=== PATIENT | male | born 1985 | race Caucasian/White ===

== ENCOUNTER 2021-12-25 13:06 | Inpatient (IN) | payer BC ==
[~2021-12-25] VITALS: Ht 185.4 cm; Wt 60.8 kg
[2021-12-25 13:06] VITALS: BP 141/96
[2021-12-25] MEDS ORDERED: LORazepam 2 MG/ML VIAL IVP ONE (13:30)
[2021-12-25] MEDS ORDERED: ONDANSETRON 4 MG/2 ML VIAL IVP ONE (13:30)
[2021-12-25] MEDS ORDERED: FOLIC ACID 1 MG TAB PO ONE (13:30)
[2021-12-25] MEDS ORDERED: THIAMINE 200 MG/2 ML VIAL IM ONE (13:30)
[2021-12-25] MEDS ORDERED: NACL 0.9% 1,000 ML IV ONE (13:30)
[2021-12-25] MEDS ORDERED: MULTIVITAMIN 1 TAB ONE (14:05)
--- NOTE | 2021-12-25 14:08 | NUR ---
PATIENT IN ROOM 8. PT IN GOWN
--- NOTE | 2021-12-25 14:08 | NUR ---
LAB AT BEDSIDE
--- NOTE | 2021-12-25 14:29 | NUR ---
36YR OLD MALE BIB EMS C/O ALOC. PT WAS FOUND DOWN NO TRAUMA. PT A&OX4. PT HAS HX OF ETOH ABUSE . ON MEDS TO HELP WITHDRAWL /CRAVINGS. PT ON MONITOR. RESP EVEN AND UNLABORED. SZ PADS ON SIDE RAILS. HX OF SZ S/P ETOH WITHDRAWL. SIDE RAILS UPX2 BED AT LOWEST POSITION. HOB ELEVATED NKDA SZ
[2021-12-25 14:31] LABS: BASOPHILS % (AUTO) 0.6 % (0.0-2.0); EOSINOPHILS % (AUTO) 0.1 % (0.0-4.0); HEMATOCRIT 36.3 % (36-52); HEMOGLOBIN 12.3 g/dL (12.0-18.0); LYMPHOCYTES # (AUTO) 0.3 K/uL (2.0-11.5); LYMPHOCYTES % (AUTO) 8.2 % (20.5-51.1); MEAN CORPUSCULAR HEMOGLOBIN 36 pg (27-31); MEAN CORPUSCULAR HGB CONC 34 g/dL (33-37); MEAN CORPUSCULAR VOLUME 107.2 fL (80-94); MONOCYTES # (AUTO) 0.3 K/uL (0.8-1.0); MONOCYTES % (AUTO) 8.8 % (1.7-9.3); NEUTROPHILS # (AUTO) 2.9 K/uL (1.8-7.7); NEUTROPHILS % (AUTO) 82.3 % (42.2-75.2); PLATELET COUNT (AUTO) 91 K/uL (140-450); RED BLOOD CELL COUNT(AUTO) 3.39 MIL/uL (4.20-6.10); RED CELL DISTRIBUTION WIDTH 16.5 % (11.6-13.7); WHITE BLOOD COUNT (AUTO) 3.5 K/uL (4.8-10.8)
--- NOTE | 2021-12-25 14:46 | NUR ---
20G IV CATH R AC PER EMS
--- NOTE | 2021-12-25 14:50 | NUR ---
PT STATES HAVING A HEADACHE. REQUESTING SOMETHING FOR PAIN. PT IS MORE RELEAXED. PT IS SITTING UP WITH HOB ELEVETED. RESP EVEN AND UNLABORED . NO DISTRESS NOTED. PT IS ON THE MONTIOR
[2021-12-25 14:56] LABS: ANION GAP 13.3 (8-16); CARBON DIOXIDE 27.4 mmol/L (21-32); CREATININE 0.7 mg/dL (0.6-1.3); MAGNESIUM 1.2 mg/dL (1.8-2.4); PHOSPHORUS 2.9 mg/dL (2.5-4.9); POTASSIUM 4.7 mmol/L (3.5-5.1); TOTAL BILIRUBIN 1.5 mg/dL (0.0-1.0)
--- NOTE | 2021-12-25 16:35 | NUR ---
SWAB FOR FLOR SENT TO LAB
[2021-12-25] MEDS ORDERED: [UNRECOGNIZED DRUG - CODE] PO (19:35)
--- NOTE | 2021-12-25 20:40 | NUR ---
SPOKE WITH BROTHER IN LAW. EXPLAINED WHY HE WAS BEING ADMITTED
[2021-12-25] MEDS ORDERED: ZOLPIDEM 5 MG TAB PO PRN (23:20)
[2021-12-25] MEDS ORDERED: DOCUSATE SODIUM 100 MG GELCAP PO PRN (23:20)
[2021-12-25] MEDS ORDERED: guaiFENesin DM 200/20 MG-10 ML 10 ML UDC PO PRN (23:20)
[2021-12-25] MEDS ORDERED: POTASSIUM CHLORIDE 10 MEQ TABER PO PRN (23:20)
[2021-12-25] MEDS ORDERED: ONDANSETRON 4 MG/2 ML VIAL IM/IVP PRN (23:20)
[2021-12-25] MEDS ORDERED: HYDROcodone/APAP 7.5/325 MG 1 TAB PO PRN (23:20)
[2021-12-25] MEDS ORDERED: ACETAMINOPHEN 325 MG TAB PO PRN (23:20)
[2021-12-25] MEDS ORDERED: MULTIVITAMIN-12 10 ML, FOLIC ACID 1 MG in DEXT 5% / LACT RING 1,000 ML IV ONE (23:25)
[2021-12-25] MEDS ORDERED: LORazepam 2 MG/ML VIAL IM/IVP PRN (23:25)
[2021-12-25] MEDS ORDERED: MAG SULF 2000 MG/WATER PREMIX 50 ML IV ONE (23:25)
--- NOTE | 2021-12-26 00:05 | NUR ---
PT AMBULATE TO BATHROOM
[2021-12-26 00:18] LABS: CHOL/HDL RATIO 1.4 (1-4.5); FREE T4 (FREE THYROXINE) 0.93 ng/dL (0.76-1.46); MAGNESIUM 1.2 mg/dL (1.8-2.4); THYROID STIMULATING HORMONE 1.23 uIU/mL (0.34-3.74)
[2021-12-26] MEDS: NACL 0.9% 1,000 ML IV SCH ×2 (00:34→16:00)
[2021-12-26 02:01] LABS: APPEARANCE,URINE CLEAR (CLEAR); BILIRUBIN,URINE NEGATIVE (NEGATIVE); BLOOD, URINE NEGATIVE (NEGATIVE); COLOR,URINE DARK YELLOW (YELLOW); LEUKOCYTE ESTERASE ,URINE NEGATIVE (NEGATIVE); NITRITE, URINE NEGATIVE (NEGATIVE); UGLUCOSE NEGATIVE (NEGATIVE)
[2021-12-26 03:10] LABS: BARBITURATE, URINE NEGATIVE ng/ml (NEG <=200); BENZODIAZEPINE, URINE POSITIVE ng/mL (NEG <=200); CANNABINOID, URINE NEGATIVE ng/mL (NEG <=50); COCAINE, URINE NEGATIVE ng/mL (NEG <=300); OPIATE, URINE NEGATIVE ng/mL (NEG <=2000); PHENCYCLIDINE SCREEN,URINE NEGATIVE ng/mL (NEG <=25)
[2021-12-26] MEDS: LORazepam 1 MG TAB PO SCH ×4 (05:08→16:19)
--- NOTE | 2021-12-26 05:16 | NUR ---
PT SLEEPING IN BED. X2 SIDE RIALS UP. SEIZURE PRECAUTION ON
[2021-12-26 06:39] LABS: ANION GAP 11.7 (8-16); CARBON DIOXIDE 27.3 mmol/L (21-32); CREATININE 0.7 mg/dL (0.6-1.3)
--- NOTE | 2021-12-26 07:22 | NUR ---
Carina castillo in [facility] - 12/26/21 at 0723 by PEDRITO Pt report given to . Transfer of care at this time.
--- NOTE | 2021-12-26 07:23 | NUR ---
Pt report given to BEENA. Transfer of care at this time.
--- NOTE | 2021-12-26 07:24 | NUR ---
REPORT RECEIVED FROM NOVA HARRIS. ASSUMED CARE AT THIS TIME
[2021-12-26 08:21] LABS: BASOPHILS % (AUTO) 0.5 % (0.0-2.0); HEMATOCRIT 37.3 % (36-52); HEMOGLOBIN 12.5 g/dL (12.0-18.0); LYMPHOCYTES # (AUTO) 0.8 K/uL (2.0-11.5); LYMPHOCYTES % (AUTO) 18.9 % (20.5-51.1); MEAN CORPUSCULAR HEMOGLOBIN 36 pg (27-31); MEAN CORPUSCULAR HGB CONC 34 g/dL (33-37); MEAN CORPUSCULAR VOLUME 107.4 fL (80-94); MONOCYTES # (AUTO) 0.5 K/uL (0.8-1.0); MONOCYTES % (AUTO) 11.8 % (1.7-9.3); NEUTROPHILS # (AUTO) 2.9 K/uL (1.8-7.7); NEUTROPHILS % (AUTO) 67.8 % (42.2-75.2); PLATELET COUNT (AUTO) 79 K/uL (140-450); RED BLOOD CELL COUNT(AUTO) 3.47 MIL/uL (4.20-6.10); RED CELL DISTRIBUTION WIDTH 15.9 % (11.6-13.7); WHITE BLOOD COUNT (AUTO) 4.4 K/uL (4.8-10.8)
--- NOTE | 2021-12-26 08:21 | NUR ---
PT AMBULATED TO RESTROOM
--- NOTE | 2021-12-26 08:24 | NUR ---
PT AMBULATORY BACK TO ROOM
--- NOTE | 2021-12-26 08:33 | NUR ---
PHARMACY CALLED FOR BANANA BAG
[2021-12-26] MEDS ORDERED: THIAMINE 100 MG TAB PO SCH (09:00)
[2021-12-26] MEDS ORDERED: PANTOPRAZOLE 40 MG TABEC PO SCH (09:00)
[2021-12-26] MEDS ORDERED: FOLIC ACID 1 MG TAB PO SCH (09:00)
[2021-12-26] MEDS ORDERED: MULTIVITAMIN 1 TAB PO SCH ×2 (09:00)
--- NOTE | 2021-12-26 09:15 | NUR ---
RECEIVED VERBAL ORDER FOR 1MG ATIVAN PO Q4H INSTEAD OF Q8H. WILL UPDATE ORDER AND INFORM PRIMARY NURSE.
--- NOTE | 2021-12-26 12:15 | NUR ---
PT TO BE NPO UNTIL ULTRASOUND. PT MADE AWARE
--- NOTE | 2021-12-26 13:27 | NUR ---
PATIENT HAS BEEN SCREENED AND CATEGORIZED LOW NUTRITION RISK. PATIENT WILL BE SEEN WITHIN 7 DAYS OF ADMISSION. 01/01/[address]
--- NOTE | 2021-12-26 14:15 | NUR ---
PT AMBULATED TO RR
--- NOTE | 2021-12-26 14:20 | NUR ---
PT AMBULATED BACK TO ROOM
--- NOTE | 2021-12-26 15:15 | NUR ---
ULTRASOUND AT BEDSIDE
--- NOTE | 2021-12-26 15:43 | NUR ---
PT EATING FOOD IN BED , PROVIDED BY PARTNER
--- NOTE | 2021-12-26 17:30 | NUR ---
Carina castillo in [facility] - 12/26/21 at 1732 by PHSEP PT AMBULATED TO RESTRROM
--- NOTE | 2021-12-26 17:32 | NUR ---
PT AMBULATED TO RESTROOM
--- NOTE | 2021-12-26 17:33 | NUR ---
PT AMBULATED BACK TO ROOM
--- NOTE | 2021-12-26 18:48 | NUR ---
PT PROVIDED WITH DINNER, LEFT AT BEDSIDE
[2021-12-26 19:05] VITALS: BP 137/93
--- NOTE | 2021-12-26 19:29 | NUR ---
REPORT GIVEN TO MT HARRIS. ALL QUESTIONS ANSWERED. TRANSFER OF CARE AT THIS TIME
--- NOTE | 2021-12-26 19:45 | NUR ---
SUGEY STATED HE HAS TO GIVE HIS BAG TO HIS .
--- NOTE | 2021-12-26 19:50 | NUR ---
PATIENT IS NOT IN BED. HASNT RETURNED FROM OUTSIDE.
--- NOTE | 2021-12-26 20:00 | NUR ---
SPOKE TO ALEJANDRA, STATED THAT SHE WOULD CALL PATIENT TO RETURN. GAVE ME PATIETN CELL NUMBER. [phone]. ATTEMPTED TO CALL PATIENT, BUT THE NUMBER WAS NOT IN SERVICE.
--- NOTE | 2021-12-26 20:10 | NUR ---
MD AWARE THAT PATIENT HAS NOT RETUNRED TO BED. STATED SHE HAD SEEN PATIETN LINGERING BY TRIAGE. TRIAGE NURSE STATED SHE HAS SEEN HIM WITH A BAG. PATIENT STILL HAS IV INSERTED AT THIS TIME.
--- NOTE | 2021-12-26 20:22 | NUR ---
SPOKE TO ALEJANDRA, SHE STATED "DO NOT CALL PD, MY IS OUTSIDE" EMT, CHARGE NURSE HAVE ALL LOOKED OUTSIDE, PATIENT IS NOT IN THE AREA. STATED SHE WILL CALL HER TO COME BACK TO GET THE IV TAKEN OUT. AWAITING PHONE CALL.
--- NOTE | 2021-12-26 20:30 | NUR ---
SUGEY RETURNED TO LOBBY AND PLACED BACK IN BED 8. STATED THAT HE NO LONGER WANTED TO BE HERE.
--- NOTE | 2021-12-26 20:35 | NUR ---
IV removed, catheter intact and site benign. Applied folded 4x4 gauze and tape to stop bleeding.
--- NOTE | 2021-12-26 20:36 | NUR ---
SPOKE TO MD CASTRO, EXPLAINED THAT PATIENT IS LEAVING AMA. MD EXPLAINED TO HAVE THE PATIENT SIGN THE AMA FORM AND EXPLAIN RISKS OF LEAVING. AMA SIGNED AND PLACED IN CHART.
[2021-12-27 08:07] LABS: T4 (THYROXINE) 6.3 ug/dL (4.5-12.0)
== END 2021-12-26 20:36 | disposition left against medical advice (07) | DRG 92 ==
LOC: MED 13:06 → MTU 21:23
PROVIDERS: ADMIT Family Medicine; ATTEND Family Medicine
DX: G92.9 Unspecified toxic encephalopathy (principal); F10.139 Alcohol abuse with withdrawal, unspecified; R56.9 Unspecified convulsions; F10.129 Alcohol abuse with intoxication, unspecified; Y90.9 Presence of alcohol in blood, level not specified; E83.42 Hypomagnesemia; R74.01 Elevation of levels of liver transaminase levels; E78.5 Hyperlipidemia, unspecified; E86.0 Dehydration; Z20.822 Contact with and (suspected) exposure to COVID-19
CPT/HCPCS: 36415; 71045; 76700; 80048; 80053; 80305; 81003; 82150; 83036; 83690; 83735; 83880; 84100; 84436; 84439; 84443; 84479; 85025; 85610; 85730; 96361; 96365; 96372; 96375; 99285; A9153; J2060; J2405; J3411; J3475; J3490; J7030; Q0092